=== PATIENT | male | born 1945 | race Caucasian/White ===

== ENCOUNTER 2017-12-10 08:51 | Emergency (ER) | payer BC, OTHER ==
[2017-12-10 09:35] VITALS: BP 131/73
--- NOTE | 2017-12-10 10:25 | UC ---
Hip/Pelvis Pain - HPI Summary HPI Summary: 3 DAYS AGO SLIPPED AND FELL BACKWARDS ONTO THE ICE. NO HEAD INJURY OR LOC. SINCE THEN PELVIC PAIN HAS WORSENED. PT FEELS VERY WEAK AND IS HAVING TO USE A WALKER TO AMBULATE. NO PAIN WITH SITTING. IBUPROFEN HELPS TRANSIENTLY. DENIES ANY NUMBNESS/TINGLING OR SADDLE ANESTHESIA. URINE APPEARS NORMAL TO HIM. NO DYSURIA OR FREQUENCY. - History Of Current Complaint Chief Complaint: UCGeneralIllness Stated Complaint: FALL IN ICE, HIPS Time Seen by Provider: 12/10/17 09:58 Hx Obtained From: Patient Onset/Duration: Sudden Onset, Lasting Days, Still Present Timing: Constant Severity Initially: Moderate Severity Currently: Moderate Pain Intensity: 1 Pain Scale Used: 0-10 Numeric Location: Discrete At: - LOW BACK AND PELVIS Character Of Pain: Sharp Aggravating Factor(s): Movement, Weight Bearing Alleviating Factor(s): Rest - Allergies/Home Medications Allergies/Adverse Reactions: Allergies Allergy/AdvReac Type Severity Reaction Status Date / Time No Known Allergies Allergy Verified 12/10/17 09:21 Home Medications: Home Medications NK [No Home Medications Reported] 12/10/17 [History Confirmed 12/10/17] PMH/Surg Hx/FS Hx/Imm Hx Other Cardiovascular History: AORTIC ANEURYSM - Surgical History Surgical History: Yes Surgery Procedure, Year, and Place: Gallbladder. Hernia x3. 2006 Colectomy. 2009 LEFT knee. 1985 RIGHT eye- prosthesis - Social History Alcohol Use: None Substance Use Type: None Smoking Status (MU): Never Smoked Tobacco - Immunization History Most Recent Influenza Vaccination: no 2016 Most Recent Tetanus Shot: UTD Most Recent Pneumonia Vaccination: Jul 2017 Review of Systems Constitutional: Negative Skin: Negative Respiratory: Negative Cardiovascular: Negative Gastrointestinal: Negative Musculoskeletal: Arthralgia, Decreased ROM Neurological: Weakness All Other Systems Reviewed And Are Negative: Yes Physical Exam Triage Information Reviewed: Yes Appearance: Well-Appearing, No Pain Distress, Well-Nourished Vital Signs: Initial Vital Signs Temp 98.9 F 12/10/17 09:21 Pulse 78 12/10/17 09:21 Resp 16 12/10/17 09:21 BP 131/73 12/10/17 09:21 Pulse Ox 99 12/10/17 09:21 Vital Signs Reviewed: Yes Eyes: Positive: Conjunctiva Clear ENT: Positive: Hearing grossly normal Neck: Positive: Supple Respiratory: Positive: No respiratory distress, No accessory muscle use Cardiovascular: Positive: Pulses Normal Abdomen Description: Positive: Soft Musculoskeletal: Positive: No Edema, ROM Limited @ - HIPS Neurological: Positive: Alert Psychological: Positive: Age Appropriate Behavior Skin: Negative: rashes Diagnostics - Radiology PELVIC XRAY Xray Interpretation: No Acute Changes Radiology Interpretation Completed By: Radiologist Hip Injury Course/Dx - Course Course Of Treatment: PT UNABLE TO PROVIDE URINE SAMPLE. DISCUSSED TRANSFER TO ED FOR FURTHER EVAL OF PAIN AND WEAKNESS. CONCERN FOR OCCULT FRACTURE, RHABDO. PT DECLINES. RISKS DISCUSSED INCLUDING AND DISABILITY. PT VERBALIZES UNDERSTANDING. WILL GO TO ER WITHOUT FAIL IF SX WORSEN. - Differential Dx/Diagnosis Provider Diagnoses: PELVIC PAIN S/P FALL Discharge - Discharge Plan Condition: Stable Disposition: HOME Patient Education Materials: Pelvic Pain in Men (ED), Contusion in Adults (ED) Referrals: Eder Saleem MD [Primary Care Provider] - If Needed Additional Instructions: NO ACUTE INJURY ON PELVIC XRAY TODAY. YOU HAVE DECLINED TRANSFER TO THE ED FOR FURTHER EVALUATION OF YOUR PAIN AND WEAKNESS. REST, OTC MEDS FOR DISCOMFORT. LOW THRESHOLD FOR GOING TO THE ED IF YOUR SYMPTOMS PERSIST OR WORSEN.
--- NOTE | 2017-12-10 10:51 | RAD ---
Indication: Pain across the anterior pelvis post fall 3 days ago. Comparison: February 12, 2007 Technique: AP pelvis Report: Negative for pelvic fracture or joint diastases. Chronic finding of mild subchondral sclerosis and cystic change at the bilateral sacroiliac joints. The hips are normally aligned in the AP projection. Mild osteophytic lipping and superior joint space narrowing at the LEFT hip without change. Associated reactive acetabular roof subchondral sclerosis. Unremarkable soft tissue contours. IMPRESSION: No radiographic evidence for traumatic pelvic injury.
== END 2017-12-10 11:35 | disposition home or self-care (01) ==
LOC: UCCORT 08:51
DX: R10.2 Pelvic and perineal pain (principal); W00.0XXA Fall on same level due to ice and snow, initial encounter; Y93.01 Activity, walking, marching and hiking; Y92.9 Unspecified place or not applicable
CPT/HCPCS: 72170; 99211; G0463